=== PATIENT | female | born 1950 | race Caucasian/White ===

== ENCOUNTER 2021-12-13 09:23 | Outpatient (CLI) | payer MEDICARE ==
[2021-12-13] MEDS ORDERED: iohexol 300mg/ml 100ml inj. ONE (09:50)
== END 2021-12-13 23:59 | disposition home or self-care (01) ==
LOC: RAD 09:23
PROVIDERS: ATTEND Internal Medicine Cardiovascular Disease
DX: K57.20 Diverticulitis of large intestine with perforation and abscess without bleeding (principal); K44.9 Diaphragmatic hernia without obstruction or gangrene; I34.81 Nonrheumatic mitral (valve) annulus calcification; N28.1 Cyst of kidney, acquired; K59.00 Constipation, unspecified
CPT/HCPCS: 74177; J3490; Q9967

== ENCOUNTER 2022-02-15 08:15 | Day surgery (SDC) | payer MEDICARE ==
[2022-02-15] VITALS (17 sets, daily range): BP systolic 106–134; BP diastolic 49–70
[~2022-02-15] VITALS: Ht 154.9 cm; Wt 54.0 kg
[~2022-02-15 08:15] MED LIST: AMPI500C65 PO; ASPI-1397 PO; ATOR40TA PO; CIPR750T14 PO; CLOP75TA34 PO; FURO20TA4 PO; LACTC PO; LISI2.5T14 PO; METO-384 PO; PANT40TA54 PO; PER5325T PO; SPIR25TA5 PO; albuterol 2.5 MG/3 ML nebule NEB ONE; ceFAZolin inj. 2,000 MG in dextrose 5%-water 100 ML IV ONE; famotidine 20mg tablet PO ONE; ringers solution, lacted 1,000 ML IV SCH
[2022-02-15 09:23] LABS: EOSINOPHILS # (AUTO) 0.3 X10'3 (0-0.9); MONOCYTES # (AUTO) 0.7 X10'3 (0-0.9)
[2022-02-15 09:25] LABS: BASOPHILS # (AUTO) 0.1 X10'3 (0-0.2); BASOPHILS % (AUTO) 1.3 % (0-1); EOSINOPHILS % (AUTO) 4.1 % (0-6); LYMPHOCYTES # (AUTO) 1.1 X10'3 (1.1-4.8); LYMPHOCYTES % (AUTO) 14.2 % (21-51); MEAN CORPUSCULAR HEMOGLOBIN 25.3 PG (27.0-31.0); MEAN CORPUSCULAR HGB CONC 32.4 g/dL (33.0-36.5); MEAN PLATELET VOLUME 7.2 FL (7.4-10.4); MONOCYTES % (AUTO) 9.1 % (2-12); NEUTROPHILS # (AUTO) 5.5 X10'3 (1.8-7.7); NEUTROPHILS % (AUTO) 71.3 % (42-75); PRE OP HEMATOCRIT 29.7 % (35.0-45.0); PRE OP PLATELET COUNT 665 X10'3 (140-440); RED BLOOD COUNT 3.81 X10'6 (4.20-5.60); RED CELL DISTRIBUTION WIDTH 19.2 % (11.5-14.5)
[2022-02-15 09:29] LABS: PRE OP HEMOGLOBIN 9.6 g/dL (12.0-16.0)
[2022-02-15 09:30] LABS: PRE OP PROTIME 10.6 SECONDS (9.0-12.0)
[2022-02-15 09:52] LABS: ANISOCYTOSIS 2+; LARGE PLATELETS FEW; MICROCYTOSIS 1+; PLATELET ESTIMATE INCREASED
[2022-02-15 10:07] LABS: ALBUMIN 2.3 G/DL (3.4-5.0); ALBUMIN/GLOBULIN RATIO 0.5 (1.1-1.5); ALKALINE PHOSPHATASE 104 IU/L (46-116); BLOOD UREA NITROGEN 10 MG/DL (7-18); BUN/CREATININE RATIO 14.5 (6.6-38.0); CALCIUM 8.5 MG/DL (8.5-10.1); CHLORIDE 101 MMOL/L (99-107); CREATININE 0.69 MG/DL (0.40-0.90); PRE OP ALT 10 U/L (30-65); PRE OP ANION GAP 9 (8-16); PRE OP AST 18 U/L (10-37); PRE OP BILIRUB, TOTAL 0.2 MG/DL (0.0-1.0); PRE OP GLUCOSE 114 MG/DL (70-104); PRE OP POTASSIUM 3.4 MMOL/L (3.4-5.1); PRE OP SODIUM 136 MMOL/L (135-145); TOTAL CARBON DIOXIDE 25.9 MMOL/L (24-32); TOTAL PROTEIN 6.8 G/DL (6.4-8.2); eGFR 83 ML/MIN
--- NOTE | 2022-02-15 10:09 | NUR ---
PATIENT HAS EXISTING REDNESS TO BUTTOCKS, F/C, AND COLOSTOMY, AND ABDOMEN WOUND
[2022-02-15] MEDS ORDERED: FENTANYL CITRATE/PF 50 MCG/1 ML VIAL ONE ×2 (10:10→10:28)
[2022-02-15] MEDS ORDERED: sevoflurane 250ml liquid IH ONE (10:10)
[2022-02-15] MEDS ORDERED: etomidate 2mg/ml inj. ONE (10:51)
[2022-02-15] MEDS ORDERED: ondansetron/PF 4mg/2ml inj ONE (10:51)
[2022-02-15] MEDS ORDERED: dexamethasone sod phosphate 4mg/ml inj. ONE (10:51)
[2022-02-15] MEDS ORDERED: ePHEDrine 50MG/ML INJ. ONE (10:51)
--- NOTE | 2022-02-15 10:56 | NUR ---
Received from OR via [facility], accompanied by Anesthesiologist DR SCHMIDT and report given by Anesthesiologist AND PLASMA CENTER TECHNICIAN. PT DROWSY, DENIES PAIN, ABDOMEN W/WOUND VAC TO LCS W/S/S DRAINAGE IN TUBING, PREVIOUS ILEOSTOMY W/NEW DRAINAGE BAG, NO STOOL, PINK STOMA, ORTEGA CATHETER TO GRAVITY DRAINAGE W/YELLOW URINE IN DRAINAGE BAG. Addendum: 02/15/22 at 1128 by Susanna Cheema RN Amended: Links added.
[2022-02-15] MEDS ORDERED: morphine 2 MG/ML inj. syringe IV PRN (11:20)
[2022-02-15] MEDS ORDERED: ringers solution, lacted 1,000 ML IV SCH (11:20)
[2022-02-15] MEDS ORDERED: ondansetron/PF 4mg/2ml inj IV PRN (11:20)
[2022-02-15] MEDS: HYDROmorphone/PF 0.2 MG/ML SYRINGE IV PRN ×3 (11:29→11:47)
[2022-02-15] MEDS ORDERED: oxyCODONE/APAP 5-325mg tablet PO ONE (12:20)
--- NOTE | 2022-02-15 12:45 | NUR ---
PTS WOUND VAC CANISTER W/FOAMY SANGUINOUS DRAINAGE, DIFFICULT TO ESTIMATE AMOUNT OF BLOOD IN CANISTER IT IS ALSO FILLED W/FOAM, ESTIMATING 200 ML, CALL INTO DR WEISS AND UPDATED, HE STATES IS OKAY TO D/C PT AND HOLD THE PLAVIX UNTIL FURTHER NOTICE. 13:25 PT UP W/ASSIST, DRESSED, D/C INSTRUCTIONS GONE OVER W/PT WHO VERBALIZED UNDERSTANDING, CALL TO PTS NURSE AT [facility] AND REPORT GIVEN. PT STATES SHE IS COMFORTABLE, WAITING FOR YAHAIRA CARGO TO PICK HER UP AND RETURN TO [facility]. PT WAITING IN BED W/PILLOWS TO OFF-LOAD PRESSURE TO COCCYX WHICH REMAINS REDDENED. Addendum: 02/15/22 at 1339 by Susanna Cheema RN Amended: Links added.
--- NOTE | 2022-02-15 14:16 | NUR ---
YAHAIRA CARGO HERE TO ADJUTANT GENERAL PT, ASSIST PT TO W/C FOR D/C. PT D/CD FROM PACU BY YAHAIRA CARGO REGISTERED NURSE AMBULATORY VIA W/C TO [facility] BACK TO [facility]. D/C INSTRUCTIONS GIVEN SENT W/PT. Addendum: 02/15/22 at 1527 by Susanna Cheema RN Amended: Links added.
== END 2022-02-15 14:16 ==
LOC: PRE-OP 08:15
PROVIDERS: ATTEND Surgery
DX: T81.89XA Other complications of procedures, not elsewhere classified, initial encounter (principal); F03.90 Unspecified dementia, unspecified severity, without behavioral disturbance, psychotic disturbance, mood disturbance, and anxiety; Y83.8 Other surgical procedures as the cause of abnormal reaction of the patient, or of later complication, without mention of misadventure at the time of the procedure; Z80.3 Family history of malignant neoplasm of breast; Z80.1 Family history of malignant neoplasm of trachea, bronchus and lung; Z87.891 Personal history of nicotine dependence; I10 Essential (primary) hypertension; E78.00 Pure hypercholesterolemia, unspecified; Z90.710 Acquired absence of both cervix and uterus; Z90.722 Acquired absence of ovaries, bilateral; Z79.01 Long term (current) use of anticoagulants; Z79.899 Other long term (current) drug therapy
CPT/HCPCS: 10180; 36415; 80053; 85025; 85610; 85730; 93005; J0690; J1100; J1170; J2405; J3010; J3490; J7030; J7060; J7120; Z7506; Z7512; 85008; A4421; A4618; A5200; A7000

== ENCOUNTER 2022-04-03 09:35 | Outpatient (CLI) | payer OTHER ==
[~2022-04-03 09:35] MED LIST changes: -albuterol 2.5 MG/3 ML nebule NEB ONE; -ceFAZolin inj. 2,000 MG in dextrose 5%-water 100 ML IV ONE; -famotidine 20mg tablet PO ONE; -ringers solution, lacted 1,000 ML IV SCH
== END 2022-04-03 23:59 | disposition home or self-care (01) ==
LOC: RAD 09:35 → EDSTATUS 10:00 → RAD 23:59
PROVIDERS: ATTEND Surgery
DX: N82.3 Fistula of vagina to large intestine (principal); Z93.3 Colostomy status
CPT/HCPCS: 74270